=== PATIENT | male | born 1970 | race Two or more races ===

== ENCOUNTER 2019-02-15 17:04 | Emergency (ER) | payer OTHER ==
[~2019-02-15] VITALS: Ht 182.9 cm; Wt 70.0 kg
[2019-02-15] MEDS ORDERED: HYDROCODONE/ACETAMINOPHEN 5/325MG TABLET PO ONE (18:00)
[2019-02-15 18:10] VITALS: BP 167/99
== END 2019-02-15 19:29 | disposition home or self-care (01) ==
LOC: ER 17:04
DX: S50.02XA Contusion of left elbow, initial encounter (principal); M25.512 Pain in left shoulder; M79.642 Pain in left hand; W11.XXXA Fall on and from ladder, initial encounter; W23.1XXA Caught, crushed, jammed, or pinched between stationary objects, initial encounter; Y93.H9 Activity, other involving exterior property and land maintenance, building and construction; Y99.0 Civilian activity done for income or pay; Y92.69 Other specified industrial and construction area as the place of occurrence of the external cause; R20.0 Anesthesia of skin
CPT/HCPCS: 73030; 73080; 73130; 99283